=== PATIENT | female | born 1985 | race Caucasian/White ===

== ENCOUNTER 2017-10-01 01:29 | Inpatient (IN) | payer OTHER ==
[2017-10-01] MEDS ORDERED: MINERAL OIL 10 ML VIAL TOPICAL (02:00)
[2017-10-01] MEDS ORDERED: PENICILLIN G POTASSIUM INJ 5,000,000 UNITS in SODIUM CHLORIDE 0.9% INJ 100 ML IV (02:00)
[2017-10-01] MEDS ORDERED: LIDOCAINE HCL 1% 50 ML VIAL INFIL (02:00)
[2017-10-01] MEDS ORDERED: CITRIC ACID-SODIUM CITRATE LIQ 30 ML UDC PO (02:00)
[2017-10-01] MEDS ORDERED: SODIUM CHLORID 0.9% 500 ML INJ 500 ML IV (02:00)
[2017-10-01] MEDS ORDERED: LIDOCAINE HCL 1% 50 ML VIAL I-DERMAL (02:00)
[2017-10-01] MEDS ORDERED: LACTATED RINGER'S 1000 ML INJ 1,000 ML IV ×2 (02:00)
[2017-10-01] MEDS ORDERED: OXYTOCIN 30 UNITS-500ML PREMIX 500 ML IV ×2 (02:00→03:00)
[2017-10-01] MEDS ORDERED: SODIUM CHLOR 0.9% 1000 ML INJ 1,000 ML IV (02:20)
[2017-10-01 02:43] LABS: BASOPHIL # 0.1 TH/MM3 (0-0.2); BASOPHIL % 0.4 % (0.0-2.0); EOSINOPHIL # 0.1 TH/MM3 (0-0.4); EOSINOPHIL % 0.6 % (0.0-4.0); HEMATOCRIT 36.4 % (35.0-46.0); HEMO FLAGS DIFF FINAL; HEMOGLOBIN 12.9 GM/DL (11.6-15.3); LYMPH % 21.6 % (9.0-44.0); LYMPHOCYTE # 3.1 TH/MM3 (1.0-4.8); MEAN CELL VOLUME 93.4 FL (80.0-100.0); MEAN CORPUSCULAR HEMOGLOBIN 33.1 PG (27.0-34.0); MEAN CORPUSCULAR HGB CONC 35.4 % (32.0-36.0); MEAN PLATELET VOLUME 7.6 FL (7.0-11.0); MONO % 6.6 % (0.0-8.0); MONOCYTE # 0.9 TH/MM3 (0-0.9); NEUT % 70.8 % (16.0-70.0); PLATELET COUNT 236 TH/MM3 (150-450); RED CELL DISTRIBUTION WIDTH 13.8 % (11.6-17.2); WHITE BLOOD COUNT 14.2 TH/MM3 (4.0-11.0)
[2017-10-01] MEDS ORDERED: ONDANSETRON ODT 4 MG TAB PO (03:00)
[2017-10-01] MEDS ORDERED: WITCH HAZEL 50%/GLYCERIN 12.5% 40 PAD JAR TOPICAL (03:00)
[2017-10-01] MEDS ORDERED: ALUMINUM/MAGNESIUM/SIMETH 30 ML CUP PO (03:00)
[2017-10-01] MEDS ORDERED: SODIUM CHLORIDE 0.9% FLUSH 10 ML FLUSH IV FLUSH (03:00)
[2017-10-01] MEDS ORDERED: ACETAMINOPHEN 325 MG TAB PO (03:00)
[2017-10-01] MEDS ORDERED: BENZOCAINE 20% TOPICAL SPRAY 60 ML CAN TOPICAL (03:00)
[2017-10-01] MEDS ORDERED: ZOLPIDEM TARTRATE 5 MG TAB PO (03:00)
[2017-10-01] MEDS: LEVOTHYROXINE SODIUM 25 MCG TAB PO (05:56)
[2017-10-01] MEDS ORDERED: PENICILLIN G POTASSIUM INJ 2,500,000 UNITS in SODIUM CHLORIDE 0.9% INJ 100 ML IV (06:00)
[2017-10-01 06:19] LABS: AMPHETAMINE, URINE NEG (NEG); BARBITURATES, URINE NEG (NEG); BENZODIAZEPINE,URINE NEG (NEG); CANNABINOIDS, URINE NEG (NEG); COCAINE, URINE NEG (NEG)
[2017-10-01] MEDS: IBUPROFEN 800 MG TAB PO ×2 (10:52→22:58)
[2017-10-01] MEDS: SODIUM CHLORIDE 0.9% FLUSH 10 ML FLUSH IV FLUSH ×2 (14:30→21:00)
[2017-10-01] MEDS ORDERED: DIPHTH/TETANUS/ACEL PERTUSSIS (BOOSTER) 0.5 ML VIAL/PFS IM (16:00)
[2017-10-01] MEDS ORDERED: MEASLES, MUMPS, RUBELLA VACCINE 0.5 ML VIAL SQ (16:00)
[2017-10-02] MEDS: LEVOTHYROXINE SODIUM 25 MCG TAB PO (06:11)
[2017-10-02] MEDS: DOCUSATE SODIUM 50 MG/SENNA 8.6 MG TAB PO ×2 (08:42→19:23)
[2017-10-02] MEDS: IBUPROFEN 800 MG TAB PO ×2 (08:43→19:23)
[2017-10-03] MEDS: LEVOTHYROXINE SODIUM 25 MCG TAB PO (05:53)
[2017-10-03] MEDS: IBUPROFEN 800 MG TAB PO (05:55)
== END 2017-10-03 09:52 | disposition home or self-care (01) | DRG 775 ==
LOC: HOBED 01:29 → H2EB 01:55 → H1EA 04:06
PROC: 10E0XZZ Delivery of Products of Conception, External Approach (ICD-10-PCS; principal; 2017-10-01)
PROC: 0UQMXZZ Repair Vulva, External Approach (ICD-10-PCS; 2017-10-01)
DX: O62.3 Precipitate labor (principal); E03.9 Hypothyroidism, unspecified; O99.824 Streptococcus B carrier state complicating childbirth; O69.81X0 Labor and delivery complicated by cord around neck, without compression, not applicable or unspecified; O99.284 Endocrine, nutritional and metabolic diseases complicating childbirth; O71.82 Other specified trauma to perineum and vulva; Z37.0 Single live birth; Z3A.40 40 weeks gestation of pregnancy
CPT/HCPCS: 59025; 80307; 85025; 86900; 86901; 99285-25